=== PATIENT | male | born 1940 | race Caucasian/White ===

== ENCOUNTER 2020-05-22 14:54 | Emergency (ER) | payer MEDICARE, OTHER ==
[~2020-05-22] VITALS: Ht 188 cm; Wt 99.8 kg
[2020-05-22] MEDS ORDERED: FAMCICLOVIR500 MG PO (15:12)
[2020-05-22] MEDS ORDERED: TAMSULOSIN HCL0.4 MG PO (15:13)
--- NOTE | 2020-05-23 00:43 | EKG ---
[facility] [address] [place] [address] Signed Normal sinus rhythm Normal ECG No previous ECGs available Confirmed by SPENCER CAUSEY MD ([id number]) on 05/23/2020 12:43:18 AM Electronically Signed By: SPENCER CAUSEY MD 05/23/20 0043 PATIENT NAME: OSVALDO RIOS Electrocardiogram DATE OF : 38 PHYSICIAN: SPENCER CAUSEY MD REPORT #: [id number] REPORT IS CONFIDENTIAL AND NOT TO BE RELEASED WITHOUT AUTHORIZATION
== END 2020-05-22 17:32 | disposition home or self-care (01) ==
LOC: ED 14:54
DX: R55 Syncope and collapse (principal); R06.02 Shortness of breath; Z79.899 Other long term (current) drug therapy
CPT/HCPCS: 80053; 84484; 85025; 93005; 93010; 99285-25

== ENCOUNTER → 2020-07-03 | Emergency (ER) | payer MEDICARE, OTHER ==
[~2020-07-03] VITALS: Ht 188 cm; Wt 99.8 kg
[~2020-07-03] MED LIST: FAMCICLOVIR500 MG PO; TAMSULOSIN HCL0.4 MG PO
--- NOTE | 2020-07-03 07:52 | EKG ---
[facility] [address] [place] [address] Signed Sinus bradycardia Otherwise normal ECG When compared with ECG of 03-JUL-2020 05:32, (Unconfirmed) QRS axis shifted left Criteria for Lateral infarct are no longer present Nonspecific T wave abnormality, improved in Inferior leads Confirmed by AYLIN SAAVEDRA MD ([id number] on 07/03/2020 7:52:01 AM Electronically Signed By: AYLIN SAAVEDRA MD 07/03/20 0752 PATIENT NAME: OSVALDO RIOS Electrocardiogram DATE OF : 38 PHYSICIAN: AYLIN SAAVEDRA MD REPORT #: [id number] REPORT IS CONFIDENTIAL AND NOT TO BE RELEASED WITHOUT AUTHORIZATION
== END ==
LOC: ED 05:23
DX: S02.32XA Fracture of orbital floor, left side, initial encounter for closed fracture (principal); W01.198A Fall on same level from slipping, tripping and stumbling with subsequent striking against other object, initial encounter; Z87.891 Personal history of nicotine dependence; Z79.899 Other long term (current) drug therapy
CPT/HCPCS: 12013; 70450; 70486; 71045; 72125; 73030; 73080; 80053; 84484; 85025; 90471; 90714; 93005; 93010; 99285-25

== ENCOUNTER 2020-07-07 13:13 | Emergency (ER) | payer MEDICARE, OTHER ==
[~2020-07-07] VITALS: Ht 188 cm; Wt 101.6 kg
--- OUTSIDE RECORDS SUMMARY | 2020-07-07 13:16 | XMS ---
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 Yaniv has no Care Guidelines for this patient. [facility] NOTE: Visits indicate total known visits. ED/C VISIT TRACKING (12 MO.) 07/07/2020 13:[address] [facility] [place] TYPE: Emergency COMPLAINT: - BLOODY NOSE 07/03/2020 05:24 [facility] [place] TYPE: Emergency COMPLAINT: - FALL DIAGNOSES: - Other restaurant crew (current) drug therapy - Fracture of orbital floor, left side, initial encounter for closed fracture - Fall on same level from slipping, tripping and stumbling with subsequent striking against other object, initial encounter - Personal history of nicotine dependence 05/22/2020 14:57 [facility] [place] TYPE: Emergency COMPLAINT: - BREATHE PROB-FOGGY DIAGNOSES: - Shortness of breath - Syncope and collapse - Other restaurant crew (current) drug therapy INPATIENT VISIT TRACKING (12 MO.) No inpatient visits to display in this time frame [email or web address]
== END 2020-07-07 15:30 | disposition home or self-care (01) ==
LOC: ED 13:13
DX: R04.0 Epistaxis (principal); S00.12XD Contusion of left eyelid and periocular area, subsequent encounter; X58.XXXD Exposure to other specified factors, subsequent encounter
CPT/HCPCS: 99283